=== PATIENT | female | born 1970 | race Caucasian/White ===

== ENCOUNTER → 2017-05-23 | Outpatient (CLI) | payer BC ==
[~2017-05-23] MED LIST: CYMBALTA PO; FIORICET 50-301 EACH PO; FROVA2.5 MG PO; MAXALT MLT10 MG/TAB PO; NO MEDICATIONS; OMEPRAZOLE20 M2 PO; PRAVASTATIN SOD20 MG PO; PROGESTERONE100 MG PO; TEMAZEPAM PO; TOPAMAX PO; VITAMIN D10000 UNIT PO
[2017-05-23 08:23] LABS: HEMATOCRIT 44.8 % (35.0-45.0); HEMOGLOBIN 15.6 gm/dL (12.0-16.0); MEAN CELL VOLUME 94.1 FL (83-96); MEAN CORPUSCULAR HEMOGLOBIN 32.9 PG (28-34); MEAN CORPUSCULAR HGB CONC 34.9 g/dL (30-36); MEAN PLATELET VOLUME 7.9 FL (6.5-11.5); RED BLOOD COUNT 4.76 X10e (3.90-5.30); RED CELL DISTRIBUTION WIDTH 13.5 % (11.0-15.5); WHITE BLOOD COUNT 9.3 X10e3 (4.0-10.5)
[2017-05-23 08:49] LABS: BUN/CREATININE RATIO 18.88; CALCIUM SERUM 9.3 mg/dL (8.4-10.2); CREATININE SERUM 0.9 mg/dL (0.6-1.4); GLOM FILT RATE Estimated 77.3 mL/min (>60); POTASSIUM 4.1 mmol/L (3.5-5.1)
== END | disposition home or self-care (01) ==
LOC: CAMB 07:45
PROVIDERS: Specialist
DX: Z01.812 Encounter for preprocedural laboratory examination (principal)
CPT/HCPCS: 36415; 80048; 85027

== ENCOUNTER → 2017-05-30 | Day surgery (SDC) | payer BC ==
--- NOTE | ~2017-05-30 | OR ---
Unit #: [id number] #: [id number] Patient: LAN FISCHER [id number] [facility] [address], [place] [address] [id number] MR#: [id number] NAME: LAN FISCHER ROOM: Date of Procedure: 05/30/2017 Admission Date: 05/30/2017 Surgeon: Don Morejon M.D. : 1970 Attending Physician: Don Morejon M.D. Primary Care Physician: Cathy Castro A.P.R.N. OPERATIVE REPORT PREOPERATIVE DIAGNOSIS Grade 3 internal and external hemorrhoids. POSTOPERATIVE DIAGNOSIS Grade 3 internal and external hemorrhoids. PROCEDURE PERFORMED Three column anorectoplasty. ANESTHESIA General endotracheal anesthesia. ESTIMATED BLOOD LOSS 20 mL. INDICATIONS FOR PROCEDURE A 46-year-old female with longstanding hemorrhoids that have failed to respond to nonoperative management. She continues to have prolapse, intermittent bleeding, pain, and itching. DESCRIPTION OF PROCEDURE The patient was admitted to [facility], positively identified, and transported to the operating room, and after induction of general endotracheal anesthesia, she was placed in lithotomy position, prepped and draped in usual sterile fashion. A gentle 2-digit dilatation of the anal sphincter was performed using lubricating jelly and then the operating anoscope was advanced into the surgical anal canal. She had 3 columns of internal and external prolapsed hemorrhoids. Each column was grasped independently with Allis clamps and elevated, and then the abnormal hemorrhoidal tissue was dissected off the anoderm and the sphincter complex. After it was dissected off, the mucosa and anoderm were closed with 3-0 chromic running lock suture. All three columns were done similarly. No other pathological tissue was identified. A perianal block with 30 mL of 0.5% Marcaine with epinephrine was performed and then the surgical anal canal was packed with 2% lidocaine jelly and Gelfoam. Daily-Pad and fishnet pants were placed as dressing. Sponges and needle counts were correct x3. The patient tolerated the procedure well and transported to recovery in stable condition. Findings were discussed with her family. Dictated by... Unit #: [id number] #: [id number] Patient: LAN FISCHER Don Morejon M.D. RS/charlee TD: 05/30/2017 14:54 JOB #: [id number] OPERATIVE REPORT Page 1 of 1 X Don Morejon MD PROCEDURE OPERATIVE NOTE
== END | disposition home or self-care (01) ==
LOC: CSUR 06:51
DX: K64.2 Third degree hemorrhoids (principal); K64.8 Other hemorrhoids; K59.09 Other constipation; K21.9 Gastro-esophageal reflux disease without esophagitis; G89.29 Other chronic pain; M54.5 Low back pain; F17.210 Nicotine dependence, cigarettes, uncomplicated; Z90.710 Acquired absence of both cervix and uterus; Z88.1 Allergy status to other antibiotic agents; Z91.040 Latex allergy status; Z98.890 Other specified postprocedural states; Z87.440 Personal history of urinary (tract) infections; Z79.899 Other long term (current) drug therapy
CPT/HCPCS: 82947; 88304; J1885; J2250; J2405; J2550; J3010

== ENCOUNTER 2017-06-06 21:34 | Emergency (ER) | payer BC ==
[~2017-06-06] VITALS: Ht 165.1 cm; Wt 68.5 kg
== END 2017-06-06 23:55 | disposition left against medical advice (07) ==
LOC: CED 21:34
DX: Z53.21 Procedure and treatment not carried out due to patient leaving prior to being seen by health care provider (principal)